=== PATIENT | male | born 1980 | race African-American/Black ===

== ENCOUNTER 2018-09-19 16:38 | Emergency (ER) | payer SELFPAY ==
[~2018-09-19] VITALS: Ht 190.5 cm; Wt 108.3 kg
[2018-09-19] MEDS ORDERED: CARD120T4 PO (17:08)
[2018-09-19] MEDS ORDERED: CLONI1TA PO (17:08)
[2018-09-19 18:22] LABS: BASO % 0.2 % (0.0-1.0); EOS # 0.1 10^3/uL (0.0-0.50); EOS % 0.3 % (0.0-3.0); HEMATOCRIT 42.7 % (42.0-52.0); HEMOGLOBIN 14.1 g/dl (13.5-17.5); LYMPH # 1.2 10^3/uL (1.5-4.5); LYMPH % 7.5 % (24.0-44.0); MEAN CORPUSCULAR HEMOGLOBIN 29.4 pg (27.0-33.0); MONO # 1.1 10^3/uL (0.0-0.8); MONO % 6.8 % (0.0-5.0); NEUTROPHILS # 13.3 10^3/uL (1.8-7.7); NEUTROPHILS % 84.9 % (36.0-66.0); PLATELET COUNT, AUTOMATED 321 10^3/uL (150-450); WHITE BLOOD COUNT 15.7 10^3/uL (4.0-10.0)
[2018-09-19 18:57] LABS: ALBUMIN 3.9 GM/DL (3.2-5.2); BILIRUBIN,DIRECT 0.1 MG/DL (0.0-0.2); BILIRUBIN,TOTAL 0.3 MG/DL (0.2-1.0); CREATININE FOR GFR 1.69 MG/DL (0.70-1.30); GLOMERULAR FILTRATION RATE 48.9 (>60); POTASSIUM SERUM 4.3 MEQ/L (3.5-5.1); TOTAL PROTEIN 7.6 GM/DL (6.4-8.2)
[2018-09-19] MEDS ORDERED: NS 1,000 ML IV ONE (20:15)
[2018-09-19] MEDS: GASTROGRAFIN SOLUTION 30ML PO SCH ×2 (21:12→21:50)
[2018-09-19 22:43] VITALS: BP 172/95
[2018-09-19] MEDS ORDERED: MORPHINE 4 MG/ML 1ML VIAL/SYRINGE (J2270) IV ONE (23:00)
--- NOTE | 2018-09-19 23:37 | REPVR ---
EXAM: CT Abdomen and Pelvis Without Contrast EXAM DATE/TIME: 09/19/2018 9:47 PM CLINICAL HISTORY: 38 years old, male; Abdominal pain; Localized; Left lower quadrant (llq); Additional info: Llq pain, elev wbc, poss hernia TECHNIQUE: Imaging protocol: Axial computed tomography images of the abdomen and pelvis without contrast. Coronal and sagittal reformatted images were created and reviewed. Radiation optimization: All CT scans at this facility use at least one of these dose optimization techniques: automated exposure control; mA and/or kV adjustment per patient size (includes targeted exams where dose is matched to clinical indication); or iterative reconstruction. COMPARISON: No relevant prior studies available. FINDINGS: Lungs: Clear lung bases. Heart: The heart is normal in size. Liver: Normal appearing liver. Gallbladder and bile ducts: Contracted gallbladder. Pancreas: Normal pancreas. Spleen: Normal spleen. Adrenals: Normal adrenal glands. Kidneys and ureters: There is no evidence of calcified stone right or left kidney. There is mild swelling of the left kidney which could be the result of pyelonephritis. Stomach and bowel: There is thickening of the bowel wall of the proximal sigmoid colon with surrounding inflammation. There are multiple diverticula and this is all consistent with changes of diverticulitis. There is some inflammation and fluid following the course of the left iliac artery and vein all consistent with changes of diverticulitis. Because of thickening of proximal sigmoid colon wall, It would be of benefit to have a followup study to ensure that this resolves and to exclude any possibility of infiltrative neoplasm. There is contrast throughout the small bowel with no evidence of obstruction. Appendix: The cecum is in the right pelvis and the appendix appears within the range of normal. Intraperitoneal space: There is no evidence of pneumoperitoneum. Vasculature: The aorta is normal in size. Lymph nodes: Normal. No enlarged lymph nodes. Bladder: Normal urinary bladder. Reproductive: Normal prostate. Bones/joints: No acute fracture. No dislocation. Soft tissues: Unremarkable. IMPRESSION: 1. Thickening of the bowel wall of the proximal sigmoid colon with surrounding inflammation extending along the left iliac artery and vein. Numerous diverticula in the area of inflammation and thickening of the colon consistent with changes of diverticulitis. A followup study would be helpful to see if this area returns to normal exclude infiltrative neoplastic process. 2. Some swelling of the left kidney could be mild pyelonephritis. Electronically signed by: Nando Gupta On 09/19/2018 23:36:55 PM
[2018-09-19] MEDS ORDERED: cloNIDine 0.1 MG TAB PO ONE (23:45)
[2018-09-19] MEDS ORDERED: CIPROFLOXACIN 500 MG TAB PO ONE (23:45)
[2018-09-19] MEDS ORDERED: metroNIDAZOLE (FLAGYL) 500 MG TAB PO ONE (23:45)
[2018-09-19 23:58] VITALS: BP 172/95
[2018-09-20] MEDS ORDERED: CLONI1TA PO (00:05)
[2018-09-20] MEDS ORDERED: CARD120T4 PO (00:05)
[2018-09-20] MEDS ORDERED: ZOFR4TAB16 PO (00:05)
[2018-09-20] MEDS ORDERED: CIPR-249 PO (00:05)
[2018-09-20] MEDS ORDERED: FLAG500T PO (00:05)
--- NOTE | 2018-09-20 06:50 | ED PDOC ---
Post-Departure Follow-Up certified letter to pt re formal read of ct abd/p. see radiology recommendation. please communicate w pt. if no pcp refer to [facility] and fax there. Armando Quinn MD Sep 20, 2018 06:50
== END 2018-09-20 00:23 | disposition home or self-care (01) ==
LOC: M ED 16:38
DX: K57.32 Diverticulitis of large intestine without perforation or abscess without bleeding (principal); N17.9 Acute kidney failure, unspecified; N28.81 Hypertrophy of kidney; I10 Essential (primary) hypertension; Z85.47 Personal history of malignant neoplasm of testis; Z88.8 Allergy status to other drugs, medicaments and biological substances; Z79.899 Other long term (current) drug therapy; Z96.0 Presence of urogenital implants
CPT/HCPCS: 74176; 80048; 80076; 81001; 83690; 85025; 96374; 99284; J2270; Q9963